=== PATIENT | male | born 1970 | race Caucasian/White ===

== ENCOUNTER 2021-08-01 14:58 | Outpatient (CLI) | payer BC, SELFPAY ==
--- NOTE | ~2021-08-01 | XR_ITS ---
EXAMINATION: XR chest 2V DATE: 08/01/2021 15:34 INDICATION: COVID. Shortness of breath. TECHNIQUE: PA and lateral views of the chest were obtained. COMPARISON: None FINDINGS: Opacities at the posterior aspect of the bilateral mid to lower lung zones. No pulmonary edema, pleur al effusion or pneumothorax. The cardiomediastinal silhouette is normal. Mild S-shaped curvature of t he thoracic spine with mild spondylosis. Right glenoid bone island IMPRESSION: 1. Opacities in the posterior aspect of the bilateral lower lobes suspicious for pneumonia. Reviewed, dictated and finalized at location A. 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 Opacities in the posterior aspect of the bilateral lower lobes suspicious fo r pneumonia.
[2021-08-01 15:30] LABS: Basophils Percent Auto 0.3 % (0.2-1.2); Eosinophils Absolute Auto 0.2 K/mm3 (0-0.3); Eosinophils Percent Auto 1.8 % (0-4.4); Hematocrit 41.2 % (42.0-52.0); Hemoglobin 13.1 g/dL (14.0-18.0); Immature Granulocyte Absolute 0.07 K/mm3 (0.00-0.031); Immature Granulocyte Percent A 0.8 % (0-0.5); Lymphocytes Absolute Auto 1.33 K/mm3 (0.9-3.2); Mean Corpuscular HGB Conc 31.8 g/dl (32-36); Mean Corpuscular Hemoglobin 30.2 pg (26-34); Mean Corpuscular Volume 94.9 fl (80-100); Mean Platelet Volume 11.9 fl (7.4-10.4); Monocytes Absolute Auto 1.5 K/mm3 (0.1-0.6); Monocytes Percent Auto 16.3 % (2.6-8.5); Neutrophils Absolute Auto 5.8 K/mm3 (1.3-6.7); Neutrophils Percent Auto 65.8 % (45.5-73.1); Platelet Count Result 280 k/mm3 (150-375); Red Blood Count 4.34 M/mm3 (4.6-6.20); Red Cell Distribution Width 12.2 % (11.5-14.5); White Blood Count 8.9 K/mm3 (4.5-10.0)
[2021-08-01 15:35] LABS: Add Urine Microscopic? YES; Appearance Urine Clear (Clear); Bilirubin Urine Negative (Negative); Blood Urine Negative (Negative); Color Urine Yellow (Yellow); Glucose Urine UA Negative (Negative); Ketones Urine Negative (Negative); Leukocyte Esterase Ur Negative LEU/UL (Negative); Mucus Urine Few /lpf; Nitrate Urine Negative (Negative); Protein Urine Negative (Negative); RBC Urine 0-2 /hpf (0-2); Specific Grav Ur 1.018 (1.001-1.035); Squamous Epithelial Cell Urine Rare /hpf (Few); Urobilinogen Urine Negative mg/dL (<2.0)
[2021-08-01 16:20] LABS: Free T4 Free Thyroxine 1.05 ng/mL (0.78-2.19); Vitamin D 25 Hydroxy 38.4 ng/mL
[2021-08-01 17:00] LABS: Alanine Aminotransferase 45 U/L (4-50); Albumin Level 3.7 g/dL (3.5-5.1); Alkaline Phosphatase 54 U/L (38-126); Anion Gap 9 mmol/L (8-16); Aspartate Amino Transferase 37 U/L (17-59); Bilirubin,Total 0.3 mg/dL (0.2-1.3); Blood Urea Nitrogen 13 mg/dL (9-20); Calcium 8.8 mg/dL (8.4-10.2); Carbon Dioxide 28 mmol/L (22-30); Chloride 105 mmol/L (98-107); Cholesterol 178 mg/dL (0-200); Estimated Glomerular Filt Rate > 60; Glucose 103 mg/dL (65-110); HDL Direct 26 mg/dL; Potassium 3.8 mmol/L (3.4-5.0); Sodium 142 mmol/L (137-145); Triglycerides 172 mg/dL (<150)
[2021-08-01 17:15] LABS: LDL Cholesterol Direct 111 mg/dL
[2021-08-01 17:30] LABS: Hemoglobin A1C 5.9 % (<5.7)
[2021-08-01 17:32] LABS: Prostate Specific Antigen 1.4 ng/mL (< OR = 4.0); Thyroid Stimulating Hormone 0.497 uIU/mL (0.465-4.680)
== END 2021-08-01 14:59 | disposition home or self-care (01) ==
PROVIDERS: PCP Internal Medicine; Visit Provider Internal Medicine
DX: R05.9 Cough, unspecified (principal); Z13.29 Encounter for screening for other suspected endocrine disorder; Z76.89 Persons encountering health services in other specified circumstances; Z13.1 Encounter for screening for diabetes mellitus; Z13.220 Encounter for screening for lipoid disorders; E55.9 Vitamin D deficiency, unspecified; Z12.5 Encounter for screening for malignant neoplasm of prostate; Z86.16 Personal history of COVID-19
CPT/HCPCS: 36415; 71046; 80053; 80061; 81001; 82306; 83036; 84153; 84439; 84443; 85025; G0103

== ENCOUNTER 2022-04-10 07:05 | Outpatient (CLI) | payer BC, SELFPAY ==
[2022-04-10 07:40] LABS: Alanine Aminotransferase 35 U/L (6-50); Albumin Level 4.1 g/dL (3.5-5.1); Alkaline Phosphatase 44 U/L (38-126); Anion Gap 10 mmol/L (8-16); Aspartate Amino Transferase 31 U/L (17-59); Bilirubin,Total 0.4 mg/dL (0.2-1.3); Blood Urea Nitrogen 22 mg/dL (9-20); Calcium 8.6 mg/dL (8.4-10.2); Carbon Dioxide 25 mmol/L (22-30); Chloride 105 mmol/L (98-107); Cholesterol 223 mg/dL (0-200); Estimated Glomerular Filt Rate 58; Glucose 105 mg/dL (65-110); HDL Direct 54 mg/dL; Sodium 140 mmol/L (137-145); Triglycerides 113 mg/dL (<150)
[2022-04-10 07:51] LABS: LDL Cholesterol Direct 135 mg/dL
[2022-04-10 08:04] LABS: Hemoglobin A1C 5.4 % (<5.7)
[2022-04-14 10:48] LABS: Apolipoprotein B 119 mg/dL (<90)
== END 2022-04-10 07:06 | disposition home or self-care (01) ==
LOC: ANHLAB 07:07
PROVIDERS: PCP Internal Medicine; Visit Provider Internal Medicine
DX: R79.9 Abnormal finding of blood chemistry, unspecified (principal); E78.5 Hyperlipidemia, unspecified; Z79.899 Other long term (current) drug therapy; R73.03 Prediabetes
CPT/HCPCS: 36415; 80053; 80061; 82172; 83036

== ENCOUNTER 2022-10-12 09:03 | Outpatient (CLI) | payer BC, SELFPAY ==
[2022-10-12 09:53] LABS: Basophils Absolute Auto 0.1 K/mm3 (0.0-0.1); Eosinophils Absolute Auto 0.4 K/mm3 (0-0.3); Eosinophils Percent Auto 7.5 % (0-4.4); Hematocrit 44.9 % (42.0-52.0); Hemoglobin 14.4 g/dL (14.0-18.0); Immature Granulocyte Absolute 0.01 K/mm3 (0.00-0.031); Immature Granulocyte Percent A 0.2 % (0-0.5); Lymphocytes Absolute Auto 1.81 K/mm3 (0.9-3.2); Lymphocytes Percent Auto 32.1 % (18.3-44.2); Mean Corpuscular HGB Conc 32.1 g/dl (32-36); Mean Corpuscular Hemoglobin 29.9 pg (26-34); Mean Corpuscular Volume 93.3 fl (80-100); Monocytes Absolute Auto 0.5 K/mm3 (0.1-0.6); Monocytes Percent Auto 9.6 % (2.6-8.5); Neutrophils Absolute Auto 2.7 K/mm3 (1.3-6.7); Neutrophils Percent Auto 48.6 % (45.5-73.1); Platelet Count Result 200 k/mm3 (150-375); Red Blood Count 4.81 M/mm3 (4.6-6.20); Red Cell Distribution Width 12.1 % (11.5-14.5); White Blood Count 5.6 K/mm3 (4.5-10.0)
[2022-10-12 10:03] LABS: Alanine Aminotransferase 32 U/L (6-50); Albumin Level 4.3 g/dL (3.5-5.1); Alkaline Phosphatase 44 U/L (38-126); Anion Gap 8 mmol/L (8-16); Aspartate Amino Transferase 25 U/L (17-59); Bilirubin,Total 0.6 mg/dL (0.2-1.3); Blood Urea Nitrogen 22 mg/dL (9-20); Calcium 8.5 mg/dL (8.4-10.2); Carbon Dioxide 27 mmol/L (22-30); Chloride 104 mmol/L (98-107); Estimated Glomerular Filt Rate > 60; Glucose 102 mg/dL (65-110); Potassium 4.3 mmol/L (3.4-5.0); Sodium 139 mmol/L (137-145)
[2022-10-12 10:35] LABS: Prostate Specific Antigen 2.3 ng/mL (< OR = 4.0)
[2022-10-12 11:07] LABS: Free T4 Free Thyroxine 0.95 ng/mL (0.78-2.19); Vitamin D 25 Hydroxy 46.9 ng/mL
[2022-10-12 12:10] LABS: Hemoglobin A1C 5.7 % (<5.7)
== END 2022-10-12 09:04 | disposition home or self-care (01) ==
LOC: ANHLAB 09:04
PROVIDERS: PCP Internal Medicine; Visit Provider Internal Medicine
DX: R73.03 Prediabetes (principal); E78.2 Mixed hyperlipidemia; D64.9 Anemia, unspecified; Z83.3 Family history of diabetes mellitus; Z79.899 Other long term (current) drug therapy; Z12.5 Encounter for screening for malignant neoplasm of prostate
CPT/HCPCS: 36415; 80053; 82306; 83036; 84153; 84439; 84443; 85025; G0103

== ENCOUNTER 2023-04-13 08:24 | Outpatient (CLI) | payer BC, SELFPAY ==
[2023-04-13 08:52] LABS: Alanine Aminotransferase 31 U/L (6-50); Albumin Level 4.1 g/dL (3.5-5.1); Alkaline Phosphatase 42 U/L (38-126); Anion Gap 8 mmol/L (8-16); Aspartate Amino Transferase 25 U/L (17-59); Bilirubin,Total 0.5 mg/dL (0.2-1.3); Blood Urea Nitrogen 20 mg/dL (9-20); Calcium 8.6 mg/dL (8.4-10.2); Carbon Dioxide 24 mmol/L (22-30); Chloride 107 mmol/L (98-107); Cholesterol 181 mg/dL (0-200); Estimated Glomerular Filt Rate 58; Glucose 102 mg/dL (65-110); HDL Direct 50 mg/dL; Potassium 4.2 mmol/L (3.4-5.0); Sodium 139 mmol/L (137-145); Triglycerides 97 mg/dL (<150)
[2023-04-13 08:59] LABS: Hemoglobin A1C 5.7 % (<5.7)
[2023-04-13 09:03] LABS: LDL Cholesterol Direct 98 mg/dL
== END 2023-04-13 08:25 | disposition home or self-care (01) ==
LOC: ANHLAB 08:25
PROVIDERS: PCP Internal Medicine; Visit Provider Internal Medicine
DX: Z00.00 Encounter for general adult medical examination without abnormal findings (principal); Z12.5 Encounter for screening for malignant neoplasm of prostate; R73.03 Prediabetes; E78.2 Mixed hyperlipidemia; E78.5 Hyperlipidemia, unspecified; Z79.899 Other long term (current) drug therapy
CPT/HCPCS: 36415; 80053; 80061; 83036

== ENCOUNTER 2023-05-03 08:45 | Outpatient (CLI) | payer BC, SELFPAY ==
--- NOTE | ~2023-05-03 | XR_ITS ---
Right Shoulder Technique: AP and scapular Y views were obtained. Clinical History: Pain Findings: No fracture or dislocation is seen. Osseous alignment is anatomic. The glenohumeral and acr omioclavicular joint spaces are preserved. Soft tissues are unremarkable. Impression: Unremarkable right shoulder radiographs. Reviewed, dictated and finalized at [facility]. Impression: Unremarkable right shoulder radiographs.
--- NOTE | ~2023-05-03 | XR_ITS ---
Left Shoulder Technique: AP and scapular Y views were obtained. Clinical History: Pain Findings: No fracture or dislocation is seen. Osseous alignment is anatomic. The glenohumeral and acr omioclavicular joint spaces are preserved. Soft tissues are unremarkable. Impression: Unremarkable left shoulder radiographs. Reviewed, dictated and finalized at [facility]. Impression: Unremarkable left shoulder radiographs.
== END 2023-05-03 08:46 | disposition home or self-care (01) ==
PROVIDERS: PCP Internal Medicine; Visit Provider Internal Medicine
DX: M25.511 Pain in right shoulder (principal); M25.512 Pain in left shoulder
CPT/HCPCS: 73030

== ENCOUNTER 2023-11-15 07:54 | Outpatient (CLI) | payer BC, SELFPAY ==
[2023-11-15 08:31] LABS: Basophils Absolute Auto 0.1 K/mm3 (0.0-0.1); Basophils Percent Auto 1.8 % (0.2-1.2); Eosinophils Absolute Auto 0.6 K/mm3 (0-0.3); Eosinophils Percent Auto 9.4 % (0-4.4); Hematocrit 43.2 % (42.0-52.0); Hemoglobin 13.8 g/dL (14.0-18.0); Immature Granulocyte Absolute 0.01 K/mm3 (0.00-0.031); Immature Granulocyte Percent A 0.2 % (0-0.5); Lymphocytes Absolute Auto 2.02 K/mm3 (0.9-3.2); Lymphocytes Percent Auto 33.8 % (18.3-44.2); Mean Corpuscular HGB Conc 31.9 g/dl (32-36); Mean Corpuscular Hemoglobin 29.8 pg (26-34); Mean Corpuscular Volume 93.3 fl (80-100); Mean Platelet Volume 12.2 fl (7.4-10.4); Monocytes Absolute Auto 0.6 K/mm3 (0.1-0.6); Monocytes Percent Auto 9.9 % (2.6-8.5); Neutrophils Absolute Auto 2.7 K/mm3 (1.3-6.7); Neutrophils Percent Auto 44.9 % (45.5-73.1); Platelet Count Result 193 k/mm3 (150-375); Red Blood Count 4.63 M/mm3 (4.6-6.20)
[2023-11-15 08:43] LABS: Anion Gap 8 mmol/L (4-12); Blood Urea Nitrogen 19 mg/dL (9-20); Calcium 9.1 mg/dL (8.4-10.2); Carbon Dioxide 24 mmol/L (22-30); Chloride 110 mmol/L (98-107); Cholesterol 201 mg/dL (0-200); Estimated Glomerular Filt Rate > 60; Glucose 97 mg/dL (65-110); HDL Direct 49 mg/dL; Sodium 142 mmol/L (137-145); Triglycerides 73 mg/dL (<150)
[2023-11-15 08:53] LABS: LDL Cholesterol Direct 113 mg/dL
[2023-11-15 09:12] LABS: Prostate Specific Antigen 1.7 ng/mL (< OR = 4.0)
[2023-11-15 09:15] LABS: Free T4 Free Thyroxine 1.02 ng/mL (0.78-2.19); Vitamin D 25 Hydroxy 39.9 ng/mL
== END 2023-11-15 07:55 | disposition home or self-care (01) ==
PROVIDERS: PCP Internal Medicine; Visit Provider Internal Medicine
DX: Z13.29 Encounter for screening for other suspected endocrine disorder (principal); Z79.899 Other long term (current) drug therapy; E78.2 Mixed hyperlipidemia; Z12.5 Encounter for screening for malignant neoplasm of prostate; E55.9 Vitamin D deficiency, unspecified
CPT/HCPCS: 36415; 80048; 80061; 82306; 84153; 84439; 84443; 85025; G0103

== ENCOUNTER 2024-07-27 13:55 | Outpatient (CLI) | payer BC, SELFPAY ==
--- NOTE | ~2024-07-27 | XR_ITS ---
EXAMINATION: XR chest 2V DATE: 07/27/2024 14:09 INDICATION: Cough TECHNIQUE: PA and lateral views of the chest were obtained. COMPARISON: Chest radiograph dated 08/01/21 FINDINGS: The lungs are clear with no focal airspace opacities, pulmonary edema, pleural effusion or pneumothor ax. The cardiomediastinal silhouette is normal. Mild lower thoracic levocurvature with mild spondylos is. IMPRESSION: 1. No acute cardiopulmonary disease. Reviewed, dictated and finalized at location B. [employer]
[2024-07-27 15:19] LABS: Basophils Absolute Auto 0.1 K/mm3 (0.0-0.1); Basophils Percent Auto 1.1 % (0.2-1.2); Eosinophils Absolute Auto 0.8 K/mm3 (0-0.3); Eosinophils Percent Auto 8.2 % (0-4.4); Hematocrit 44.2 % (42.0-52.0); Hemoglobin 14.1 g/dL (14.0-18.0); Immature Granulocyte Absolute 0.01 K/mm3 (0.00-0.031); Immature Granulocyte Percent A 0.1 % (0-0.5); Lymphocytes Absolute Auto 1.55 K/mm3 (0.9-3.2); Lymphocytes Percent Auto 15.8 % (18.3-44.2); Mean Corpuscular HGB Conc 31.9 g/dl (32-36); Mean Corpuscular Hemoglobin 30.2 pg (26-34); Mean Corpuscular Volume 94.6 fl (80-100); Monocytes Absolute Auto 1.3 K/mm3 (0.1-0.6); Neutrophils Absolute Auto 6.1 K/mm3 (1.3-6.7); Neutrophils Percent Auto 61.8 % (45.5-73.1); Platelet Count Result 178 k/mm3 (150-375); Red Blood Count 4.67 M/mm3 (4.6-6.20); Red Cell Distribution Width 12.8 % (11.5-14.5); White Blood Count 9.8 K/mm3 (4.5-10.0)
[2024-07-27 15:55] LABS: Influenza A QL RT-PCR Negative (Negative); Influenza B QL RT-PCR Negative (Negative); RSV RNA, RT-PCR Negative (Negative); SARS-CoV-2 RNA PCR Positive (Negative)
== END 2024-07-27 13:56 | disposition home or self-care (01) ==
PROVIDERS: PCP Internal Medicine; Visit Provider Internal Medicine
DX: R05.9 Cough, unspecified (principal); Z20.822 Contact with and (suspected) exposure to COVID-19
CPT/HCPCS: 36415; 71046; 85025; 87637